=== PATIENT | female | born 1975 | race Hispanic/Latino ===

== ENCOUNTER 2022-10-21 15:48 | Emergency (ER) | payer OTHER ==
[~2022-10-21] VITALS: Ht 154.9 cm; Wt 72.6 kg
[2022-10-21] MEDS ORDERED: JARDIANCE10 MG PO (20:14)
[2022-10-21] MEDS ORDERED: METFORMIN HCL500 M1 PO (20:14)
[2022-10-21] MEDS ORDERED: SIMVASTATIN5 MG PO (20:15)
[2022-10-21] MEDS ORDERED: ZESTRIL2.5 MG PO (20:15)
[2022-10-21] MEDS ORDERED: MACROBID 100 M100 MG PO ×2 (22:26→22:36)
[2022-10-21] MEDS ORDERED: ONDANSETRON ODT4 MG PO ×2 (22:26→22:36)
[2022-10-21 22:35] VITALS: BP 143/89
--- NOTE | 2022-10-23 16:45 | EKG ---
[facility] [address] [facility] [place], [place] [address] Signed Normal sinus rhythm Right bundle branch block Abnormal ECG No previous ECGs available Confirmed by HUSEYIN DODD MD ([id number]) on 10/23/2022 4:45:16 PM Electronically Signed By: HUSEYIN DODD 10/23/22 1645 PATIENT NAME: VU LOWRY Electrocardiogram DATE OF : 73 PHYSICIAN: HUSEYIN DODD REPORT #: [id number] REPORT IS CONFIDENTIAL AND NOT TO BE RELEASED WITHOUT AUTHORIZATION
== END 2022-10-21 22:36 | disposition home or self-care (01) ==
LOC: ED 15:48
DX: N39.0 Urinary tract infection, site not specified (principal); E86.0 Dehydration; E11.9 Type 2 diabetes mellitus without complications; I10 Essential (primary) hypertension; E78.5 Hyperlipidemia, unspecified; Z79.84 Long term (current) use of oral hypoglycemic drugs; Z79.899 Other long term (current) drug therapy; Z20.822 Contact with and (suspected) exposure to COVID-19
CPT/HCPCS: 36415; 80053; 81001; 83690; 83735; 84484; 84703; 85025; 87502; 93005; 93010; 96361; 96374; 99284 25; J2405; J7040; U0002